=== PATIENT | female | born 1960 | race Caucasian/White ===

== ENCOUNTER 2022-09-27 10:46 | Emergency (ER) | payer OTHER, SELFPAY ==
[2022-09-27 10:59] VITALS: BP 177/100; PULSE 104; RESP 19; TEMP 36.4; O2SAT 96; BMI 42.0
--- NOTE | 2022-09-27 11:03 | W.ED.HEATRA ---
HPI - Head Injury General: Chief complaint: Fall Stated complaint: fall/head pain Time Seen by Provider: 09/27/22 11:03 Course Vital Signs: Vital signs: Vital Signs Temperature 97.5 F L 09/27/22 10:59 Pulse Rate 104 H 09/27/22 10:59 Respiratory Rate 19 H 09/27/22 10:59 Blood Pressure 177/100 09/27/22 10:59 Pulse Oximetry 96 09/27/22 10:59 Oxygen Delivery Me thod 09/27/22 10:59 Discharge Plan Discharge Condition: Stable Prescriptions: No Action metoprolol tartrate 25 mg tablet 25 mg PO BID Qty: 180 3RF losartan 25 mg tablet 25 mg PO DAILY Qty: 90 3RF Referrals: Haim Newman, [Primary Care Provider] - Coding Level of Care Code ED 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
--- NOTE | 2022-09-27 11:30 | W.ED.FALL ---
HPI - Fall General: Chief Complaint: Fall Stated Complaint: fall/head pain Time Seen by Provider: 09/27/22 11:03 Source: patient and family Mode of arrival: ambulatory Limitations: no limitations History of Present Illness: Patient is a very nice 62-year-old female presents to ED today along with family for evaluation following a fall. Patient states she accidentally tripped and fell directly onto her face on a concrete parking lot. No LOC. Patient denies dizziness or headache. Patient is not on anticoagulation. She states she struck her right forehead and nose. She sustained a small abrasion to her nose. Last tetanus is unknown. She has not had any epistaxis since the injury. She is not having any neck pain. She reports some mild right shoulder discomfort but has full range of motion here. No other injuries or complaints at this time. MD complaint: fall Onset (ago): hour(s) Fall from: standing Fall witnessed: yes, by family Place fall occurred: street Loss of consciousness: None Prolonged down time: no Symptoms prior to fall: none Context: tripped/slipped Location of injury: face Associated symptoms-after fall: Reports no associated symptoms; Denies chest pain, headache(s), lightheadedness or neck pain Review of Systems Eyes: Denies: change in vision, blurry vision, floaters or seeing flashes Card: Denies: chest pain, lightheadedness, syncope or pre-syncope Resp: Denies: dyspnea GI: Denies: nausea or vomiting Musc: Reports: joint pain (R shoulder); Denies: neck pain, back pain, extremity pain, extremity swelling or joint swelling Skin/Breast: Reports: other (abrasion to nose; forehead swelling) Neuro: Denies: headache(s), numbness in extremities, weakness in extremities, sensory changes or dizziness Physical Exam Const: COMMON NORMALS: no acute distress, average body habitus, patient oriented x3, no limitations, healthy appearing, alert and well nourished GENERAL APPEARANCE: cooperative ORIENTATION/CONSCIOUSNESS: Yes awake, Yes oriented to person, Yes oriented to place and Yes oriented to time HENMT: COMMON NORMALS: normocephalic HEAD & SCALP: normal to inspection, normocephalic, contusion (R forehead) and other (mild R frontal edema) NOSE: Normal septum present and Other nasal findings present (mild swelling to nose; no deformity; small abrasion) MOUTH: other (no intraoral injuries noted) Eye: GENERAL EYE: appearance normal, both eyes and all related structures Neck/C-Spine: COMMON NORMALS: full ROM GENERAL: Yes normal visual inspection CERVICAL SPINE: Yes cervical ROM normal, No pain with cervical ROM, No Cervical spine tenderness, No step off deformity and No Paracervical muscle tenderness Resp: COMMON NORMALS: normal respiratory effort and clear to auscultation bilaterally AUSCULTATION: clear to auscultation bilaterally Cardio: COMMON NORMALS: regular rate and regular rhythm RATE: regular rate RHYTHM: regular rhythm Back/Pelvis: COMMON NORMALS: thoracic and lumbar spine normal to inspection, no thoracic nor lumbar tenderness and thoraco-lumbar ROM normal Extremity: COMMON NORMALS: normal to inspection and full ROM GENERAL: Yes normal exam except as noted RIGHT UPPER EXTREMITY: Yes shoulder joint (mild stiffness but full ROM) Right shoulder: Yes Right shoulder joint inspection exam (normal) and Yes Right shoulder joint neurovascular exam (normal) Neuro: HUMA COMA SCALE: document GCS findings Hartshorne coma scale eye opening: Spontaneous Hartshorne coma scale verbal response: Orientated Hartshorne coma scale motor response: Obey commands Hartshorne coma scale total score: 15 COMMON NORMALS: patient oriented x3, CN's II-XII intact bilaterally, moves all extremities, no focal motor deficits, no sensory deficits noted and gait normal SENSORIUM/ORIENTATION: Yes alert, Yes oriented to person, Yes oriented to place and Yes oriented to time Skin: NARRATIVE SKIN EXAM: small abrasion to nose-otherwise normal skin exam Course Vital Signs: Vital signs: Vital Signs Temperature 97.5 F L 09/27/22 10:59 Pulse Rate 104 H 09/27/22 10:59 Respiratory Rate 19 H 09/27/22 10:59 Blood Pressure 177/100 09/27/22 10:59 Pulse Oximetry 96 09/27/22 10:59 Oxygen Delivery Me thod 09/27/22 10:59 MDM - Fall Medical Decision Making CT scans negative. Tetanus was up-to-date. Patient is stable for discharge at this time. Return to ED precautions given. Lab Data Radiology Impressions Face CT 09/27/22 11:37 IMPRESSION: 1. No acute facial fractures 2. Small amount of fluid in the LEFT greater than RIGHT maxillary sinuses. [address] 09/27/22 11:37 IMPRESSION: 1. No evidence of intracranial hemorrhage or mass effect 2. No acute intracranial findings. Discharge Plan Discharge Patient Disposition: Home Clinical Impression: Fall on same level from tripping Facial contusion Qualifiers: Encounter type: initial encounter Qualified Code(s): S00.83XA - Contusion of other part of head, initial encounter Contusion of right shoulder Qualifiers: Encounter type: initial encounter Qualified Code(s): S40.011A - Contusion of right shoulder, initial encounter Condition: Stable Prescriptions: No Action metoprolol tartrate 25 mg tablet 25 mg PO BID Qty: 180 3RF losartan 25 mg tablet 25 mg PO DAILY Qty: 90 3RF Discharge Orders: Discharge ED (Routine); Ordered 09/27/22 Ordered By: Courtney Groves Referrals: Haim Newman DO [Primary Care Provider] - Coding Level of Care Code ED Surgery Scheduling Coordinator for Jesse Langston
--- NOTE | 2022-09-27 11:37 | CT_ITS ---
WS: [id number] CT HEAD TECHNIQUE: Noncontrast CT of the head obtained from the skullbase to the vertex. CLINICAL INFORMATION: fall/trauma COMPARISON: None. DLP: 1770.[address] scans at [facility] use at least one of these dose optimization techniques: automated e xposure control; mA and/or kV adjustment per patient size (includes targeted exams where dose is matc hed to clinical indication); or iterative reconstruction. FINDINGS: No evidence of intracranial hemorrhage or mass effect. Ventricular system and basal cisterns are paul nt. Mild small vessel changes with mild parenchymal volume loss. No extra-axial fluid collections. No evidence of mass or mass effect. Normal horta-white differentiation. Paranasal sinuses and mastoid air cells are well aerated. .Normal visualized soft tissues. CT/CT head wo con* [id number] IMPRESSION: 1. No evidence of intracranial hemorrhage or mass effect 2. No acute intracranial findings.
--- NOTE | 2022-09-27 11:37 | CT_ITS ---
WS: [id number] CT FACIAL BONES TECHNIQUE: Noncontrast facial bones with coronal and sagittal reformatted images. CLINICAL INFORMATION: fall, struck face, forehead/nasal pain COMPARISON: None. DLP: 1770.[address] scans at [facility] use at least one of these dose optimization techniques: automated e xposure control; mA and/or kV adjustment per patient size (includes targeted exams where dose is matc hed to clinical indication); or iterative reconstruction. FINDINGS: Anterior nasal bones appear normal. Mild chronic appearing LEFT to RIGHT nasal septal deviation. Smal l amount of fluid in the LEFT greater than RIGHT maxillary sinuses. Ethmoid air cells are well aerate d. Mastoid air cells are well aerated. Normal posterior nasopharynx and parapharyngeal fat. Normal la gypsy papyracea. Normal zygoma. Disc osteophyte complexes at C5-C6 and C6-C7 with mild to moderate andres tral canal stenosis. CT/CT facial bones wo con* [id number] IMPRESSION: 1. No acute facial fractures 2. Small amount of fluid in the LEFT greater than RIGHT maxillary sinuses. 0
[2022-09-27] MEDS: tetanus-dipt-pertussis 0.5 mL SDV IM (11:55)
== END 2022-09-27 12:27 | disposition home or self-care (01) ==
PROVIDERS: Emergency Provider Physician Assistant; PCP Family Medicine
DX: S00.83XA Contusion of other part of head, initial encounter (principal); S40.011A Contusion of right shoulder, initial encounter; W01.0XXA Fall on same level from slipping, tripping and stumbling without subsequent striking against object, initial encounter; Y92.481 Parking lot as the place of occurrence of the external cause; Z23 Encounter for immunization
CPT/HCPCS: 70450; 70486; 90471; 90715; 99284

== ENCOUNTER → 2022-11-09 10:44 | Outpatient (BNVA) | payer OTHER, SELFPAY | PROVIDERS: PCP Family Medicine; Visit Provider Family Medicine | DX: B37.2 Candidiasis of skin and nail (principal); I10 Essential (primary) hypertension | CPT/HCPCS: 80053; 80061 ==

== ENCOUNTER → 2023-05-17 12:06 | Outpatient (BNVA) | payer OTHER, SELFPAY | PROVIDERS: PCP Family Medicine; Visit Provider Family Medicine | DX: B37.2 Candidiasis of skin and nail (principal); E11.9 Type 2 diabetes mellitus without complications; I10 Essential (primary) hypertension; Z13.6 Encounter for screening for cardiovascular disorders | CPT/HCPCS: 80053; 80061; 83036 ==